=== PATIENT | male | born 1935 | race Caucasian/White ===

== ENCOUNTER → 2018-10-14 | Outpatient (CLI) | payer OTHER ==
[~2018-10-14] MED LIST: ASA81BEC PO; CENTRUM SILVER1 EAC4 PO; FLECAINIDE ACET50 M1 PO; FLOMAX0.4 MG PO; LEVOTHYROXINE0.05 MG PO; NORCO 5-325 TA1 EACH PO; VITAMIN D2000 UNIT PO; VITAMIN D3400 UNIT PO; ZOCOR20 MG PO
--- NOTE | 2018-10-14 14:25 | 2DMMODE ---
[facility] [address] [place] [address] 2 D/M-MODE ECHOCARDIOGRAM Name: BENJAMIN JEREZ JR Room #: REG [facility]#: [id number] ������������� Admission: 10/14/18 ������������� Attend Phys: Yuri Velazquez Discharge: ��� ������������� ��� Date of : 33 Date of Service: 10/14/18 1424 �� Report #: [id number] �������� ��������������������������������������������[id number] THIS REPORT FOR: //name// APPROVED REPORT Study performed: 10/14/2018 13:12:13 EXAM: Comprehensive 2D, Doppler, and color-flow Echocardiogram Patient Location: Out-Patient Room #: Echo lab 1 Status: routine BSA: 2.05 HR: 86 bpm BP: 138/78 mmHg Rhythm: Pacemaker Other Information Study Quality: Good Indications Bradycardia Pacemaker 2D Dimensions RVDd: 15.60 mm IVSd: 9.23 (7-11mm) LVOT Diam: 21.41 (18-24mm) LVDd: 48.40 mm PWd: 10.70 (7-11mm) Ascending Ao: 32.73 (22-36mm) LVDs: 30.23 (25-40mm) Aortic Root: 34.24 mm IVC: 15.00 mm Volumes Left Atrial Volume (Systole) Single Plane 4CH: 36.67 mL Single Plane 2CH: 51.35 mL LA ESV Index: 25.00 mL/m2 Aortic Valve AoV Peak Enrique.: 1.22 m/s AO Peak Gr.: 5.95 mmHg LVOT Max P.41 mmHg LVOT Max V: 1.05 m/s MACKENZIE Vmax: 3.10 cm2 Mitral Valve E/A Ratio: 0.7 MV Decel. Time: 279.54 ms [facility] [place] [address] [place] [address] 2 D/M-MODE ECHOCARDIOGRAM Name: BENJAMIN JEREZ [id number] ������������� Admission: 10/14/18 ������������� Attend Phys: Yuri Velazquez Discharge: ��� ������������� ��� Date of : 33 Date of Service: 10/14/18 1424 �� Report #: [id number] �������� ��������������������������������������������[id number] MV E Max Enrique.: 0.65 m/s MV A Enrique.: 0.94 m/s MV PHT: 81.07 ms IVRT: 106.11 ms Pulmonary Valve PV Peak Enrique.: 0.76 m/s PV Peak Gr.: 2.31 mmHg Pulmonary Vein P Vein S: 0.63 m/s P Vein A: 0.30 m/s P Vein D: 0.50 m/s P Vein A Dur.: 133.8 msec P Vein S/D Ratio: 1.26 Tricuspid Valve TR Peak Enrique.: 2.68 m/s TR Peak Gr.: 28.76 mmHg PA Pressure: 34.00 mmHg Left Ventricle The left ventricle is normal size. There is normal LV segmental wall motion. There is normal left ventricular wall thickness. The left ventricular systolic function is normal. The left ventricular ejection fraction is within the normal range. LVEF is 55-60%. Grade I - abnormal relaxation pattern. Right Ventricle The right ventricle is normal size. The right ventricular systolic function is normal. Pacemaker lead is present in the right ventricle. Atria The left atrium size is normal. Right atrium is dilated. Pacemaker lead is present in the right atrium. Aortic Valve The aortic valve is normal in structure. No aortic regurgitation is present. There is no aortic valvular stenosis. Mitral Valve The mitral valve is normal in structure. Mild mitral regurgitation. Trace mitral regurgitation. Trace to mild mitral regurgitation. No evidence of mitral valve stenosis. Tricuspid Valve The tricuspid valve is normal in structure. There is moderate tricuspid regurgitation. Estimated PAP 34 mmHg. There is mild pulmonary hypertension. [facility] [address] [place] [address] 2 D/M-MODE ECHOCARDIOGRAM Name: BENJAMIN JEREZ Mohsen JR [facility] [id number] ������������� Admission: 10/14/18 ������������� Attend Phys: Yuri Velazquez Discharge: ��� ������������� ��� Date of : 33 Date of Service: 10/14/18 1424 �� Report #: [id number] �������� ��������������������������������������������[id number] Pulmonic Valve The pulmonary valve is normal in structure. Trace to mild pulmonic regurgitation. Trace pulmonic regurgitation. Trace to mild pulmonic regurgitation. Mild pulmonic regurgitation. Mild to moderate pulmonic regurgitation. Moderate pulmonic regurgitation. Great Vessels The aortic root is normal in size. IVC is normal in size and collapses >50% with inspiration. Pericardium There is no pericardial effusion. <Conclusion> The left ventricle is normal size. The left ventricular systolic function is normal. The left ventricular ejection fraction is within the normal range. LVEF is 55-60%. No significant valvular disease ��������������������������������������������� <ELECTRONICALLY SIGNED> ���������������������������������������� By: Yuri Velazquez MD ��������������������������������������������� 10/14/18 1424 1424 1424 Yuri Velazquez MD /INF
== END ==
LOC: CV 08:44
DX: I08.8 Other rheumatic multiple valve diseases (principal); I27.20 Pulmonary hypertension, unspecified; Z95.0 Presence of cardiac pacemaker

== ENCOUNTER → 2019-10-20 | Outpatient (CLI) | payer OTHER | LOC: SJCVC 13:38 | PROVIDERS: ATTEND Internal Medicine Cardiovascular Disease | DX: Z45.018 Encounter for adjustment and management of other part of cardiac pacemaker (principal); I47.1 Supraventricular tachycardia; I49.5 Sick sinus syndrome; E55.9 Vitamin D deficiency, unspecified; I10 Essential (primary) hypertension; Z79.899 Other long term (current) drug therapy ==

== ENCOUNTER → 2020-08-01 | Outpatient (CLI) | payer OTHER | LOC: SJCVC 15:19 | PROVIDERS: ATTEND Internal Medicine Cardiovascular Disease | DX: R94.31 Abnormal electrocardiogram [ECG] [EKG] (principal); I25.10 Atherosclerotic heart disease of native coronary artery without angina pectoris; I12.9 Hypertensive chronic kidney disease with stage 1 through stage 4 chronic kidney disease, or unspecified chronic kidney disease; N18.9 Chronic kidney disease, unspecified; I48.0 Paroxysmal atrial fibrillation; E78.5 Hyperlipidemia, unspecified; Z95.0 Presence of cardiac pacemaker; Z79.82 Long term (current) use of aspirin; Z79.899 Other long term (current) drug therapy ==